=== PATIENT | female | born 1985 | race Hispanic/Latino ===

== ENCOUNTER 2018-08-24 10:24 | Emergency (ER) | payer SELFPAY ==
[2018-08-24 12:01] LABS: Bilirubin Negative (Negative); Blood, Urine Moderate (Negative); Clarity CLEAR (Clear); Glucose, Urine (Dipstick) 100 mg/dL (Negative); Leukocyte Negative (Negative); Nitrite Negative (Negative); Protein, Urine (Dipstick) Negative (Neg-Trace); Urobilinogen 0.2 mg/dL (0.2-1.0); pH, Urine 6.5 (5.0-9.0)
[2018-08-24 12:09] LABS: Bacteria/HPF None Seen HPF (None Seen); Hyaline Casts/LPF 0-3 HYALINE CAST LPF (0-3 Hyaline); Pathc Cast-AUWi Flag 0.67 (0-2.49); RBC/HPF 0-3 HPF (0-3); Squamous Epithelial 0-3 HPF (0-3); WBC/HPF 0-3 HPF (0-3)
== END 2018-08-24 12:36 | disposition home or self-care (01) ==
LOC: ERS 10:24
DX: O20.0 Threatened abortion (principal); O24.011 Pre-existing type 1 diabetes mellitus, in pregnancy, first trimester; E10.9 Type 1 diabetes mellitus without complications; Z3A.16 16 weeks gestation of pregnancy
CPT/HCPCS: 81003; 81015

== ENCOUNTER 2019-01-27 19:30 | Inpatient (IN) | payer MEDICAID, OTHER, SELFPAY ==
[2019-01-27 20:16] VITALS: BMI 32.2
[2019-01-27] MEDS ORDERED: Lidocaine 1% (PF) 30 ML VIAL SC PRN ×2 (20:28→21:37)
[2019-01-27] MEDS ORDERED: Ondansetron PF 4 MG/2 ML Vial IVP PRN (20:28)
[2019-01-27] MEDS ORDERED: Misoprostol 200 MCG TAB PR PRN (20:28)
[2019-01-27] MEDS ORDERED: Methylergonovine 0.2 MG/ML VIAL IM PRN (20:28)
[2019-01-27] MEDS ORDERED: Promethazine HCl 25 MG/ML VIAL IM PRN (20:28)
[2019-01-27] MEDS ORDERED: hydrALAZINE 20 MG/ML VIAL SLOW IVP PRN (20:28)
[2019-01-27] MEDS ORDERED: Acetaminophen 500 MG TAB PO PRN (20:28)
[2019-01-27] MEDS ORDERED: NS / Oxytocin 40 units/1000ml 1,000 ML IV PRN ×2 (20:28→21:37)
[2019-01-27] MEDS ORDERED: Carboprost 250 MCG/ML AMP IM PRN (20:28)
[2019-01-27] MEDS ORDERED: Misoprostol 100 MCG TAB VAG SCH (20:30)
--- NOTE | 2019-01-27 20:44 | PDOC.FPROB ---
FMR OB H&P: HPI - History of Present Illness Chief Complaint: Induction Indentification: 34 yo @ 37.2 weeks by 6.1 wks History of Present Illness: 34 yo @ 37.2 weeks by 6.1 wks sono presents for eIOL. Currently endorses good movement. No LOF, mucous vaginal discharge, no vaginal bleeding. Feeling contractions intermittently. Is a pre-gestational diabetic and currently takes NPH 16u Qam 20u QPM, and short acting 8u and 5u. Primary Care Physician: Ana Cristina FMR OB H&P: Current - Care : 6 Para: [id number] Gestational age: 37.2 wks Due date: 02/15/19 Dating Criteria: 6.1 week sono Total weight gain: 41 lb weight gain - OB Labs Blood type: O RH: positive Antibody Screen: negative HIV: negative RPR: negative HepBsAg: negative Rubella: immune Quad screen: unknown Urine drug screen: not done Gonorrhea: negative Chlamydia: negative Pap Smear: 07/03/18 NILM/HPV A1c: 8.2->7.2->5.9->5.7->5.9 GBS: positive H&H: 06/23/18 13.5 12/03/18 13 Additional labs: TSH 1.8 Urine Pr/Cr 142 - Anatomy Survey Anatomy survey: 17 weeks [place] 95% - Additional Ultrasound Additional: 21 wks [place] >99% 29 wks hadlock >99% 36 wks hadlock 3405 g [place] 94%, BPP 8/8 RICH 10.6 36.1 wks RICH 9.46 01/26/19 RICH 4.41, NST reactive. FMR OB H&P: History - Past Medical History PMH: DMII - OB History OB History: 3 TVD, last 2 c/b DM Class B DM - DIVERSITY INTERN History DIV[employer]N History: Pap normal earlier this year - Surgical History Sx History: none - Social History Social History: Denies any smoking, alcohol or illicit drug use. - Family History Family History: BDM FMR OB H&P: Medications - Current Home Medications: Medication Instructions Recorded Confirmed Type Vit37/Iron/Folic Acid 1 tab PO DAILY 01/27/19 01/27/19 History [[place] Chewable Tablet] Allergies/Adverse Reactions: Allergies Allergy/AdvReac Type Severity Reaction Status Date / Time No Known Allergies Allergy Verified 01/27/19 20:14 FMR OB H&P: ROS - Review of Systems General: denies: fever/chills, weight/appetite/sleep changes, night sweats Eyes: denies: vision changes, double vision, scotomas ENT: denies: nasal congestion, rhinorrhea Cardiovascular: denies: chest pain, palpitation, edema Respiratory: denies: cough, congestion, shortness of breath Gastrointestinal: denies: abdominal pain, cramping, nausea, vomiting, diarrhea, constipation Genitourinary (Female): reports: vaginal discharge (mucous), contractions ( intermittent). denies: incontinence, dysuria, hematuria, vaginal pain, vaginal bleeding, vaginal pressure Musculoskeletal: denies: pain Neurologic: denies: numbness, syncope Integumentary: denies: rash FMR OB H&P: Vital Signs - Maternal Vital signs: Vital Signs - First Documented Temp Pulse Resp BP 97.9 F 94 18 101/60 01/27/19 19:58 01/27/19 19:58 01/27/19 19:58 01/27/19 19:58 - Heart Tones Baseline: 130 Variability: moderate Acceleration: present Deceleration: absent Category: category 1 [place] contractions every: intermittent FMR OB H&P: Physical Exam - Physical Exam General: NAD, awake, alert and oriented HEENT: EOMI, MMM, conjunctiva clear, normal nasal mucosa Neck: supple, trachea midline Heart: RRR, normal S1/S2, no murmurs/rubs/gallops, pulses present, no edema General: CTAB, no respiratory distress, good air movement, no rales/rhonchi, no wheezing Abdomen: soft, gravid, non-tender, bowel sound present Neurological: no focal deficit Skin: no rash Lymphatic: no unusual bruising or bleeding, no purpura Psychiatric: intact recent and remote memory, good judgement and insight, normal mood and affect - Pelvic Exam SVE: 4/50/-2 [place] score: 5 Membranes: intact Presentation: cephalic - confirmed with US FMR OB H&P: A/P - Problem List (1) Third trimester Current Visit: Yes Status: Acute Code(s): Z34.93 - ENCNTR FOR SUPRVSN OF NORMAL PREG, UNSP, THIRD TRIMESTER (2) Elective induction of labor planned Current Visit: Yes Status: Acute Code(s): [id number] - (3) DMII (diabetes mellitus, type 2) Current Visit: Yes Status: Acute Disposition: 34 yo @ 37.2 weeks by 6.1 wks sono with pregestational DMII presents for eIOL. #eIOL - @ 37.2 weeks by 6.1 wks sono - Beside US with cephalic presentation and RICH of 10 - Gaston of 5 - Intact - SVE of /-2 - Will start augmentation of labor with pit after first dose of PNC - will recheck 2 hours after starting pit #GBS postitive - Will treat with PNC - Will begin augmentation of labor after completion of first dose #Pregestational DMII - Will place on mild SSI - Uses NPH 16u Qam 20u QPM, and short acting 8u and 5u at home - A1C 8.2 Diet: NPO with ice chips IVF: LR @125cc/hr Dispo: Admitted for eIOL. Favorable gaston. Will start pit. Will cont to monitor. Discussion: Date/Time: 01/27/192041 This H&P was discussed with Dr. Kowalski and Dr. Sanchez who agree with the above documentation and plan. Addendum - Attending - Attending Attestation Date/Time: 01/28/19144 I personally evaluated the patient and discussed the management with Dr. Aranda I agree with the History, Examination, Assessment and Plan documented above with any addition or exceptions noted below. patient undergoing medically indicated induction for uncontrolled White Class B DM on insulin. GBS positive. PCN #1 given before initiation of pitocin. will hold long acting insulin now and provide sliding scale coverage. goal glucose < 110
[2019-01-27] MEDS ORDERED: HumaLOG 300 UNITS/3 ML VIAL SC PRN (20:59)
[2019-01-27] MEDS ORDERED: Dextrose 5% in Water 1,000 ML IV PRN (20:59)
[2019-01-27] MEDS ORDERED: Dextrose 50% Abboject 50 ML SYRINGE SLOW IVP PRN (20:59)
[2019-01-27] MEDS ORDERED: Penicillin G Potassium 5 MILL.UNITS in Sodium Chloride 0.9% 100 ML IVPB SCH (21:00)
[2019-01-27 21:04] LABS: Hemoglobin 13.3 g/dL (12.0-16.0); Mean Corpuscular HGB CONC 34.7 g/dL (32.0-36.0); Mean Corpuscular Hemoglobin 30.1 pg (27.0-31.0); Mean Corpuscular Volume 86.8 fL (78.0-98.0); Mean Platelet Volume 9.4 fL (7.4-10.4); Platelet Count 145 thou/uL (130-400); RBC Distribution Width 13.1 % (11.5-14.5); Red Blood Cell (RBC) Count 4.41 mill/uL (4.20-5.40); White Blood Cell (WBC) Count 7.5 thou/uL (4.8-10.8)
[2019-01-27] MEDS ORDERED: NPH, Human Insulin Isophane 300 UNIT/3 ML VIAL SC SCH (21:30)
[2019-01-27 21:43] LABS: Syphilis Antibody Nonreactive (Nonreactive); Syphilis Antibody Index 0.02 S/CO (<1.00 Non-Reactive)
[2019-01-27] MEDS ORDERED: NS w/ Oxytocin 10 units 500 ML IV SCH ×2 (21:45)
[2019-01-27] MEDS: Lactated Ringer's 1,000 ML IV SCH (21:55)
[2019-01-27 22:48] LABS: HBSAg Index 0.28 S/CO (0-0.99); Hep B Surf Ag Non-Reactive S/CO (NonReactive)
[2019-01-28] MEDS: Benzonatate 100 MG CAP PO PRN ×2 (01:22→21:51)
[2019-01-28] MEDS: Penicillin G 2.5 MILL.units 2.5 MILL.UNITS in Premix Bag 1 BAG IVPB SCH ×6 (01:45→21:35)
[2019-01-28] MEDS ORDERED: HumaLOG 300 UNITS/3 ML VIAL SC PRN ×3 (01:54→20:21)
--- NOTE | 2019-01-28 02:32 | PDOC.LDPN ---
Labor & Delivery Progress Note - Subjective Subjective: comfortable - Objective Vital signs reviewed and normal: yes General: NAD, resting Uterine fundus: non tender SVE: 2:30 Dilation: 6 Effacement: 50% Station: -1 FHT: category 1, variability present [place] contractions every: 2-3 minutes - Assessment (1) Encounter for induction of labor Code(s): Z34.90 - ENCNTR FOR SUPRVSN OF NORMAL , UNSP, UNSP TRIMESTER Current Visit: Yes Status: Acute (2) DMII (diabetes mellitus, type 2) Current Visit: Yes Status: Acute (3) Third trimester Code(s): Z34.93 - ENCNTR FOR SUPRVSN OF NORMAL PREG, UNSP, THIRD TRIMESTER Current Visit: Yes Status: Acute Plan: continue plan of care, pitocin for augmentation -: #eIOL - @ 37.3 weeks by 6.1 wks sono - Beside US with cephalic presentation and RICH of 10 - Intact - SVE @ 2:30 of /-1. Cat 1 strip. Accels noted. FHR 145 - Pitocin at rate of 10. - Will continue to check q2 hours #GBS postitive - Will treat with PNC - Pt has received 2 doses of penicillin. Will continue to tx #Pregestational DMII - Pt placed on SSI to keep BG below 110 - Uses NPH 16u Qam 20u QPM, and short acting 8u and 5u at home - A1C 5.9 on most recent check Attending ADDENDUM medically indicated IOL for uncontrolled White class B DM
[2019-01-28] MEDS ORDERED: Fentanyl 4 mcg/Bup 0.1% Cadd 100 ML ONE (02:42)
[2019-01-28] MEDS ORDERED: HYDROmorphone 2 MG/ML VIAL SLOW IVP PRN (03:23)
[2019-01-28] MEDS ORDERED: PACU-Morphine 4MG/ML VIAL SLOW IVP PRN (03:23)
[2019-01-28] MEDS ORDERED: Promethazine HCl 25 MG/ML VIAL IM PRN ×2 (03:23→03:38)
[2019-01-28] MEDS ORDERED: Promethazine HCl 25 MG/ML VIAL SLOW IVP PRN (03:23)
[2019-01-28] MEDS ORDERED: Ondansetron HCl/PF 4 MG/2 ML Vial IVP PRN (03:23)
[2019-01-28] MEDS ORDERED: Acetaminophen 325 MG TAB PO PRN (03:38)
[2019-01-28] MEDS ORDERED: Lactated Ringer's 500 ML IV PRN (03:38)
[2019-01-28] MEDS ORDERED: Ondansetron PF 4 MG/2 ML Vial IVP PRN (03:38)
[2019-01-28] MEDS ORDERED: diphenhydrAMINE 50 MG/ML VIAL IVP PRN (03:38)
[2019-01-28] MEDS ORDERED: Naloxone HCl 0.4 mg/ml Vial IVP PRN ×2 (03:38)
[2019-01-28] MEDS ORDERED: ePHEDrine/0.9% NaCl/PF SYRINGE 50 mg/10 ml SLOW IVP PRN (03:38)
[2019-01-28] MEDS ORDERED: Fentanyl 4 mcg/Bupivacaine 0.1% Cassette 100 ML EPIDURAL SCH (03:45)
[2019-01-28] MEDS ORDERED: Communication Order-Pharmacy FS SCH (03:45)
[2019-01-28] MEDS: Lactated Ringer's 1,000 ML IV SCH ×2 (04:18→05:45)
--- NOTE | 2019-01-28 04:46 | PDOC.LDPN ---
Labor & Delivery Progress Note - Subjective Subjective: comfortable, painful contractions, no concerns - Objective Vital signs reviewed and normal: yes General: NAD, resting, breathing through contractions SVE: 0500 Dilation: 6 Effacement: 50% Station: -1 FHT: category 1 (accels, no decels), variability present [place] contractions every: 3-4 min Other exam findings: intact - Assessment (1) Third trimester Code(s): Z34.93 - ENCNTR FOR SUPRVSN OF NORMAL PREG, UNSP, THIRD TRIMESTER Current Visit: Yes Status: Acute (2) Elective induction of labor planned Code(s): [id number] - Current Visit: Yes Status: Acute (3) DMII (diabetes mellitus, type 2) Current Visit: Yes Status: Acute Plan: continue plan of care, pitocin for augmentation -: 34 yo @ 37.3 weeks by 6.1 wks sono #Medically indicated IOL - @ 37.3 weeks by 6.1 wks sono - Beside US with cephalic presentation and RICH of 10 - Intact - SVE @ 0500 of /-1. Cat 1 strip. Accels noted. FHR 140 - Pitocin at rate of 10. - Will continue to check q2 hours. #GBS postitive - Pt has received 2 doses of penicillin. Will continue to tx #Pregestational DMII - Pt placed on SSI to keep BG below 110 - Uses NPH 16u Qam 20u QPM, and short acting 8u and 5u at home - A1C 5.9 on most recent check
--- NOTE | 2019-01-28 07:12 | PDOC.LDPN ---
Labor & Delivery Progress Note - Subjective Subjective: comfortable - Objective Vital signs reviewed and normal: yes General: NAD Uterine fundus: non tender FHT: category 1 [place] contractions every: 4 mins AROM: clear fluid - Assessment (1) DMII (diabetes mellitus, type 2) Current Visit: Yes Status: Acute (2) Encounter for induction of labor Code(s): Z34.90 - ENCNTR FOR SUPRVSN OF NORMAL , UNSP, UNSP TRIMESTER Current Visit: Yes Status: Acute Plan: continue plan of care, labor augmentation -: 34 yo @ 37.3 weeks by 6.1 wks sono Medically indicated IOL - Beside US with cephalic presentation and RICH of 10 - Pitocin at rate of 10. - Will continue to check q2 hours. - 50/0 AROM @0720 GBS postitive - cont. pen q4hr Pregestational DMII - Pt placed on SSI to keep BG below 110 - Uses NPH 16u Qam 20u QPM, and short acting 8u and 5u at home - A1C 5.9 on most recent check
--- NOTE | 2019-01-28 09:24 | PDOC.LDPN ---
Labor & Delivery Progress Note - Subjective Subjective: comfortable, vaginal pressure - Objective Vital signs reviewed and normal: yes General: NAD, breathing through contractions Uterine fundus: non tender Dilation: 9 Effacement: 90% Station: 1+ FHT: category 1, early decelerations [place] contractions every: 3 - Assessment (1) DMII (diabetes mellitus, type 2) Current Visit: Yes Status: Acute (2) Encounter for induction of labor Code(s): Z34.90 - ENCNTR FOR SUPRVSN OF NORMAL , UNSP, UNSP TRIMESTER Current Visit: Yes Status: Acute Plan: continue plan of care -: 34 yo @ 37.3 weeks by 6.1 wks sono Medically indicated IOL - Beside US with cephalic presentation and RICH of 10 - AROM @0720 - progressing well, continue expectant mgmt GBS postitive - cont. pen q4hr Pregestational DMII - Pt placed on SSI to keep BG below 110 - Uses NPH 16u Qam 20u QPM, and short acting 8u and 5u at home - A1C 5.9 on most recent check
[2019-01-28] MEDS ORDERED: Bupivacaine HCl 0.25%/Epi 0.0005/PF 10 ML VIAL FS ONE (11:11)
[2019-01-28] MEDS ORDERED: Adacel (T-DAP) 0.5 ML SYRINGE IM ONE (11:36)
[2019-01-28] MEDS ORDERED: Milk Of Magnesia 30 ML UDCUP PO PRN (11:36)
[2019-01-28] MEDS ORDERED: Bisacodyl 10 MG SUPP PR PRN (11:36)
[2019-01-28] MEDS ORDERED: NS / Oxytocin 40 units/1000ml 1,000 ML ONE (12:26)
[2019-01-28] MEDS: Ferrous Sulfate 325 MG TAB PO SCH (18:37)
[2019-01-28] MEDS: Docusate Calcium (SURFAK) 240 MG CAP PO SCH (21:50)
[2019-01-29] MEDS: HYDROcodone/Acetaminophen 5/325 mg Tablet PO PRN ×2 (00:38→05:40)
[2019-01-29] MEDS: Benzonatate 100 MG CAP PO PRN ×4 (01:47→22:25)
[2019-01-29] MEDS: Ibuprofen 800 MG TAB PO SCH ×3 (05:40→22:26)
--- NOTE | 2019-01-29 06:14 | PDOC.PP ---
Post Progress Note Post Day #: 2 Subjective: doing well, ambulating and urinating successfully, reports some mild abdominal pain, bleeding has slowed PO intake tolerated: yes Flatus: no Ambulation: yes Vital Signs (12 hours) Temp Pulse Resp BP Pulse Ox 01/29/19 05:35 98.2 F 77 16 97/53 L 01/29/19 00:25 98.5 F 92 16 95/51 L 01/28/19 20:28 100/55 L 01/28/19 20:10 98.6 F 75 20 89/50 L 97 Weight Weight 74.843 kg - Physical Examination General: NAD Cardiovascular: no m/r/g, RRR Respiratory: clear to auscultation bilaterally Abdominal: appropriately TTP Skin: no rash Neurological: no gross focal deficits Psychiatric: normal affect Result Diagrams: 01/27/19 20:39 Additional Labs: Post Labs Blood Type O POSITIVE 01/27/19 22:07 Hep Bs Antigen Non-Reactive S/CO (NonReactive) 01/27/19 20:39 (1) DMII (diabetes mellitus, type 2) Status: Acute (2) Encounter for induction of labor Code(s): Z34.90 - ENCNTR FOR SUPRVSN OF NORMAL , UNSP, UNSP TRIMESTER Status: Acute - Assessment/Plan s/p - routine post- care - minimal blood loss at delivery - pain control Pregestational DMII - Uses NPH 16u Qam 20u QPM, and short acting 8u and 5u at home - A1C 5.9 on most recent check - sugar at goal so far, continue to monitor ACHS, restart insulin if needed - SSI available Addendum - Attending - Attending Attestation Date/Time: 01/29/19 1100 I personally evaluated the patient and discussed the management with Dr. Hensley I agree with the History, Examination, Assessment and Plan documented above with any addition or exceptions noted below - Patient without complaints. Afebrile VSS. A/P: 1) PPD#1 s/p - continue routine care. 2 ) Type 2 DM - BG stable; will restart on metformin.
[2019-01-29] MEDS: metFORMIN 500 MG TAB PO SCH ×2 (07:54→22:25)
[2019-01-29] MEDS: Docusate Calcium (SURFAK) 240 MG CAP PO SCH ×2 (10:48→22:26)
--- NOTE | 2019-01-29 11:08 | PDOC.OPDEL ---
OB Operative/Delivery Note Delivery Dr/Surgeon: Glenda Aranda/Bob Pre-Delivery Diagnosis: medically indicated induction Procedure/Post Delivery Dx: spontaneous vaginal delivery Weeks gestation: 37 (37.3) Anesthesia: epidural - Findings A Sex: male Weight: 4.2 kg - 1 min: 8 - 5 min: 9 - Additional Findings/Plan Placenta delivered: spontaneous Repaired Obstetrical Laceration: 2nd degree Estimated blood loss: BZZ=418 mL Compilations/Other Findings: Date and time: 01/28/2019 @10:20 Pre-op Diagnosis: 1) IUP@ 37.2 weeks 2) Pregestational DM- poorly controlled 3) GBS (+) Post-op Diagnosis: 1) IUP@ 37.2 weeks 2) Pregestational DM- poorly controlled 3) GBS (+) - adequately treated 4) LGA male infant Resident: Glenda Aranda MD Attending: Glenda Rojas MD Summary: 34 yo @ 37.2 weeks delivered a viable male via over an intact perineum. Apgars 9/9. Weight 4200g. Delivered LOT, no nuchal cord. Mild shoulder dystocia relieved with Rokc and suprapubic pressure. Cord clamped and cut. Infant placed on maternal abdomen. Placenta delivered spontaneously, intact. 3 vessel cord. Perineum and vagina inspected 2nd degree perineal laceration repaired under epidural anesthesia with 2-0 vicryl suture in the usual fashion. INV=209 mL Pt tolerated procedure well, recovering in LDR. Infant to WBN. I was present and assisted in this delivery with Dr. Aranda. Glenda Rojas MD Post delivery plan: routine recovery
--- NOTE | 2019-01-30 04:46 | PDOC.PP ---
Post Progress Note Post Day #: 2 Subjective: She says she has a sore throat and runny nose, as well as cough. She has a good amount of cramping pain, 6/10. She says she has bleeding every time she moves. No clots present, and she used 2 pads yesterday. She has been passing gas, but no BM since . PO intake tolerated: yes Flatus: yes Ambulation: yes Weight Weight 74.843 kg - Physical Examination General: NAD Cardiovascular: no m/r/g, RRR Respiratory: clear to auscultation bilaterally Abdominal: lochia, no distention, appropriately TTP Deviation from normal: hypoactive bowel sounds Fundus firm & at: below the umbilicus Skin: no rash Neurological: no gross focal deficits Psychiatric: A&Ox3, normal affect Result Diagrams: 01/27/19 20:39 Additional Labs: Post Labs Blood Type O POSITIVE 01/27/19 22:07 Hep Bs Antigen Non-Reactive S/CO (NonReactive) 01/27/19 20:39 (1) DMII (diabetes mellitus, type 2) Status: Acute (2) Elective induction of labor planned Code(s): [id number] - Status: Acute (3) Third trimester Code(s): Z34.93 - ENCNTR FOR SUPRVSN OF NORMAL PREG, UNSP, THIRD TRIMESTER Status: Acute - Assessment/Plan 34 yo @ 37.2 weeks delivered a viable male via over an intact perineum. 1. s/p * Routine post- care * Minimal blood loss at delivery * Pain control 2. Pregestational DMII * Uses NPH 16u Qam 20u QPM, and short acting 8u and 5u at home * A1C 5.9 on most recent check * Sugar at goal so far, continue to monitor ACHS, restart insulin if needed * SSI available Code Status: Full Diet: Regular Activity: As tolerated Dispo: Admitted to pp. LOS >48H. Likely d/c home today. Addendum - Attending - Attending Attestation Date/Time: 01/30/19 2355 I personally evaluated the patient and discussed the management with Dr. Glenda Aranda I agree with the History, Examination, Assessment and Plan documented above with any addition or exceptions noted below- [place] without complaints. Tolerating po. Ambulating/voiding. Afebrile VSS. A/P: 1) PPD#2 s/p - doing well; plan to d/c home today.
[2019-01-30] MEDS: Ferrous Sulfate 325 MG TAB PO SCH ×2 (05:13→09:50)
[2019-01-30] MEDS: Benzonatate 100 MG CAP PO PRN ×2 (05:34→09:25)
[2019-01-30] MEDS: Ibuprofen 800 MG TAB PO SCH (05:35)
[2019-01-30 08:33] VITALS: BP 96/55; TEMP 98.5
[2019-01-30] MEDS: Docusate Calcium (SURFAK) 240 MG CAP PO SCH (09:01)
[2019-01-30] MEDS: metFORMIN 500 MG TAB PO SCH (09:01)
--- NOTE | 2019-01-31 08:57 | DN ---
DATE OF PROCEDURE: 01/28/[address]/Surgeon: Bret Aranda MD. Katiana Rojas MD. Pre-Delivery Diagnosis: 1. Medically Indicated Induction 2. IUP @ 37.2 weeks 3. Pre-gestational DM, poorly controlled 4. GBS + Post-Delivery Diagnosis: 1. Spontaneous Vaginal Delivery 2. Pre-gestational DM, poorly controlled 3. GBS +, adequately treated 4. [place] male infant Anesthesia: Epidural This is a 34-year-old female, G6, P3-0-2-3 at 37.2 weeks, who delivered a viable male at 10:20 a.m. on 01/28 following an uneventful intrapartum course. A vigorous male was delivered over an intact perineum in the LOT position. Mild shoulder dystocia was relieved with [place] & suprapubic pressure. Anterior shoulder and the remainder of the body were delivered. No nuchal cord, but a nuchal arm was present. The head was placed down, and mouth and nares were bulb suctioned. Cord clamped and cut and cord blood was collected. Placenta delivered spontaneously & intact with a three-vessel cord noted. Fundal massage was performed, and fundus was firm. The cervix and vagina are inspected and found to have a secondary perineal, which was sutured and repaired with 2-0 vicryl suture with good approximation and hemostasis under epidural anesthetia. The went to nursery in good condition for routine care. Apgars were 9 and 9 at one and five minutes respectively and 4.2 kg. The patient tolerated delivery well and went to after routine recovery. QBL was 225 mL. Job ID: [id number] MTDD
== END 2019-01-30 11:55 | disposition home or self-care (01) | DRG 807 ==
LOC: L&D 19:35 → 3SW 01-28 13:53
PROVIDERS: ADMIT Family Medicine; ATTEND Family Medicine
PROC: 10E0XZZ Delivery of Products of Conception, External Approach (ICD-10-PCS; principal; 2019-01-28)
PROC: 0KQM0ZZ Repair Perineum Muscle, Open Approach (ICD-10-PCS; 2019-01-28)
PROC: 3E033VJ Introduction of Other Hormone into Peripheral Vein, Percutaneous Approach (ICD-10-PCS; 2019-01-28)
DX: O24.32 Unspecified pre-existing diabetes mellitus in childbirth (principal); Z37.0 Single live birth; E11.9 Type 2 diabetes mellitus without complications; Z3A.37 37 weeks gestation of pregnancy; O99.824 Streptococcus B carrier state complicating childbirth; O70.1 Second degree perineal laceration during delivery
CPT/HCPCS: 36415; 36416; 51702; 85027; 86780; 86850; 86900; 86901; 87340; 88307; J1815; J2405; J2540; J2590; J3490